=== PATIENT | male | born 1970 | race Caucasian/White ===

== ENCOUNTER 2017-07-15 14:24 | Day surgery (SDC) | payer OTHER ==
[2017-07-15] MEDS ORDERED: GABAPENTIN 300 MG CAP PO ONE (14:28)
[2017-07-15] MEDS ORDERED: ceFAZolin 2 GM/SWFI 2 GM/20 ML SYR IVP ONE (14:28)
[2017-07-15] MEDS ORDERED: ACETAMINOPHEN 500 MG TAB PO ONE (14:28)
[2017-07-15] MEDS ORDERED: CHLORHEXIDINE GLUC HIBICLENS 118 ML BTL TP ONE (14:29)
[2017-07-15] MEDS ORDERED: THROMBIN (BOVINE) 5,000 UNIT VIAL TP ONE (14:29)
[2017-07-15] MEDS ORDERED: BUPIVACAINE 0.25% 30 ML SDV ONE (14:29)
[2017-07-15] MEDS ORDERED: BACITRACIN 50,000 UNITS/10 ML SYR IRR ONE (14:30)
[2017-07-15] MEDS ORDERED: LIDOCAINE 1% 2 ML INJ ID PRN (14:31)
[2017-07-15] MEDS ORDERED: LR 1,000 ML IV ONE (14:31)
--- NOTE | 2017-07-15 14:40 | PDHPUP ---
History & Physical Update H&P update statement: This history and physical update is based on an assessment of the patient which was completed after admission or registration (within 24 hours), but prior to the surgery/procedure. H&P update: H&P reviewed & patient examined, no change in patient's condition since H&P completed
[2017-07-15] MEDS ORDERED: GABAPENTIN 300 MG CAP ONE (15:06)
[2017-07-15] MEDS ORDERED: MIDAZOLAM 2 MG/2 ML VIAL IVP ONE (15:13)
--- NOTE | 2017-07-15 15:13 | PDANEPAE ---
ANE History of Present Illness synovial cyst L4-L5, R foot drop ANE Past Medical History - Cardiovascular History Hx Hypertension: No Hx Arrhythmias: No Hx Chest Pain: No Hx Coronary Artery / Peripheral Vascular Disease: No Hx CHF / Valvular Disease: No Hx Palpitations: No - Pulmonary History Hx COPD: No Hx Asthma/Reactive Airway Disease: No Hx Recent Upper Respiratory Infection: No Hx Oxygen in Use at Home: No Hx Sleep Apnea: No Sleep Apnea Screening Result - Last Documented: Negative - Neurologic History Hx Cerebrovascular Accident: No Hx Seizures: No Hx Dementia: No - Endocrine History Hx Diabetes: No - Renal History Hx Renal Disorders: No - Liver History Hx Hepatic Disorders: No - Neurological & Psychiatric Hx Hx Neurological and Psychiatric Disorders: No - Cancer History Hx Cancer: No - Congenital Disorder History Hx Congenital Disorders: No - GI History Hx Gastrointestinal Disorders: No - Chronic Pain History Chronic Pain: No - Surgical History Prior Surgeries: R ACL. bilateral bone spurs on feet ANE Review of Systems Review of Systems: - Exercise capacity METS (RN): 6 METS ANE Patient History - Allergies Allergies/Adverse Reactions: No Known Allergies Allergy (Unverified 07/15/17 10:13) - Home Medications Home medications: home medication list seen and reviewed Home Medications: Advil PRN 07/15/17 [Last Taken 1 Week Ago ~07/08/17] Gabapentin [Neurontin 300 MG (*)] 900 BID 07/15/17 [Last Taken 07/14/17] Genvoya Tablet DAILY 07/15/17 [Last Taken 07/14/17 21:00] Herbals/Supplements -Info Only 07/15/17 [Last Taken 1 Week Ago ~07/08/17] Meloxicam PRN 07/15/17 [Last Taken 1 Week Ago ~07/08/17] - NPO status NPO Status: no food or drink >8 hours NPO Since - Liquids (Date): 07/15/17 NPO Since - Liquids (Time): 05:00 NPO Since - Solids (Date): 07/14/17 NPO Since - Solids (Time): 22:00 - Smoking Hx Smoking Status: Never smoked - Family Anes Hx Family Hx Anesthesia Complications: none ANE Labs/Vital Signs - Vital Signs Blood Pressure: 135/87 Heart Rate: 65 Respiratory Rate: 18 O2 Sat (%): 92 Height: 182.88 cm Weight: 88.451 kg ANE Physical Exam - Airway Neck exam: FROM Mallampati Score: Class 1 Mouth exam: normal dental/mouth exam - Pulmonary Pulmonary: no respiratory distress - Cardiovascular Cardiovascular: regular rate and rhythym - ASA Status ASA Status: II
[2017-07-15] MEDS ORDERED: MIDAZOLAM 2 MG/2 ML VIAL ONE (15:15)
[2017-07-15] MEDS ORDERED: PROPOFOL/EMULSION 500 MG/50 ML BOTTLE IV ONE (15:19)
[2017-07-15] MEDS ORDERED: REMIFENTANIL HCL 1 MG VIAL ONE (15:19)
[2017-07-15] MEDS ORDERED: fentaNYL 100 MCG/2 ML INJ ONE (15:19)
[2017-07-15] MEDS ORDERED: LIDOCAINE 2% 5 ML SDV ONE (15:49)
[2017-07-15] MEDS ORDERED: ROCURONIUM 50 MG/5 ML VIAL ONE (15:49)
[2017-07-15] MEDS ORDERED: ONDANSETRON 4 MG/2 ML VIAL ONE (15:52)
[2017-07-15] MEDS ORDERED: SUGAMMADEX SODIUM 200 MG/2 ML VIAL IVP ONE (15:52)
[2017-07-15] MEDS ORDERED: DEXAMETHASONE 4 MG/ML VIAL ONE (15:52)
[2017-07-15] MEDS ORDERED: HYDROmorphONE/DILAUDID 2 MG/ML INJ ONE (16:08)
[2017-07-15] MEDS ORDERED: ONDANSETRON 4 MG/2 ML VIAL IVP PRN (16:33)
[2017-07-15] MEDS ORDERED: PROMETHAZINE HCL 25 MG/ML INJ IVP PRN (16:33)
[2017-07-15] MEDS ORDERED: NALOXONE HCL 0.4 MG/ML INJ IVP PRN (16:33)
[2017-07-15] MEDS ORDERED: HYDROmorphONE/DILAUDID 1 MG/ML INJ IVP PRN (16:33)
[2017-07-15] MEDS ORDERED: fentaNYL 100 MCG/2 ML INJ IVP PRN (16:33)
[2017-07-15] MEDS ORDERED: PROPOFOL 200 MG/20 ML VIAL ONE (16:46)
[2017-07-15] MEDS ORDERED: DEPO METHYLPREDNISOLONE 40 MG/ML SDV ONE (16:48)
--- NOTE | 2017-07-15 17:21 | POSTANESTH ---
Post Anesthetic Evaluation Cardiovascular Status: Normal, Stable Respiratory Status: Normal, Stable Level of Consciousness/Mental Status: Can Participate in Eval Pain Control: Adequate, Prn Tx Ordered Nausea/Vomiting Control: Adequate, Prn Tx Ordered Complications Possibly Related to Anesthesia: None Noted
--- NOTE | 2017-07-15 17:24 | SOAPPROG ---
SOAP Progress Note Assessment/Plan: Post Op Visit: S: Awake and alert. NAD. Pt with some expected lower back pain O: AFVSS/PERRLA/EOMI no droop CN 2-12 grossly intact +lt touch 5/5 BUE/BLE = CDI A/P: 47 yo male that is s/p L4/5 right sided synovial cyst removal with decompression -orders in place -call with any questions or concerns -pt seen by Dr Hart -ana when criteria is met 07/15/17 17:22 Objective: Vital Signs Temp Pulse Resp BP Pulse Ox 36.9 C 65 18 135/87 H 92 07/15/17 14:48 07/15/17 16:32 07/15/17 16:32 07/15/17 16:32 07/15/17 16:32 ICD10 Worksheet Patient Problems: Problems Problem Status Onset Lumbar radicular pain Acute Lumbar stenosis Acute - ICD10 Problem Qualifiers (1) Lumbar stenosis (2) Lumbar radicular pain
[2017-07-15 17:29] VITALS: TEMP 98.2
[2017-07-15] MEDS ORDERED: oxyCODONE IR 5 MG TAB PO PRN (17:51)
[2017-07-15] MEDS ORDERED: METHOCARBAMOL 750 MG TAB PO PRN (17:52)
[2017-07-15] MEDS ORDERED: oxyCODONE IR 5 MG TAB ONE (18:06)
[2017-07-15 18:26] VITALS: BP 106/55; PULSE 66; RESP 14; O2SAT 96
--- NOTE | 2017-07-15 20:04 | GOP ---
[f rep st] OPERATIVE REPORT DATE OF OPERATION: 07/15/2017 SURGEON: Armando Hart MD NEUROSURGEON: Armando Hart MD. IUSS MASTER ANALYST: Rodney Martin PA-C. PREOPERATIVE DIAGNOSIS: Right L4-5 synovial cyst, mild L4-5 spondylolisthesis. POSTOPERATIVE DIAGNOSIS: Right L4-5 synovial cyst, mild L4-5 spondylolisthesis. PROCEDURE PERFORMED: Right L4-5 hemilaminotomy with a resection of an epidural mass over the right L 5 nerve root (synovial cysts), microscope. FINDINGS: ESTIMATED BLOOD LOSS: 10 cc. INDICATIONS: The patient is a 47-year-old who presented to my office yesterday with really a profoun d right footdrop. He was barely antigravity with the toe, in fact could not sustain the toe against gravity and had 3/5 strength and somewhat even classified as 2/5 strength in the right extensor hallu cis longus. He had a completely normal toe extensor on the left-hand side. He is in terrible pain a nd he had been managed with some interventional treatments. The footdrop was a couple weeks old at [facility]. It was not necessarily worsening, but his pain was not improving. He was slated to get aspira tion of the cyst by an outside physician, which is a perfectly reasonable plan. However, when I saw him, there was a significant footdrop and a large right synovial cyst. Imaging characteristics of th e cyst in my view were not favorable in this case for aspiration and I thought surgery should be purs ued on an urgent basis given the loss of function in the right foot. He also had profound sensory lo ss in that foot and he did want to proceed with surgery. The risk of recurrent cyst formation, CSF l eak, nerve injury, continued symptoms, and possible need for a fusion surgery was discussed. He knew that the cyst was simply a phenomenon indicative of an underlying problem in the facet joint and the n that problem in the facet joint itself would not improve with surgery, but the motivation of jillianr ellen was simply to remove this large cyst crushing the right 5 root. He wanted to proceed. DESCRIPTION OF PROCEDURE: Patient was taken to the operating room, placed in supine position. Gener al anesthesia was begun. He was flipped prone onto the Zach frame. Care was taken to pad all poin ts of contact. His back was sterilely prepped and draped in usual fashion. A localizing x-ray was nena harrison. We made a midline incision, it was about 15 mm in length. The subcutaneous tissue was dissect ed using Bovie cautery down to the fascia and a subperiosteal dissection was made down the L4-5 ludmila a on the right-hand side. A self-retaining retractor was placed. We drilled a right L4-5 hemilamino juliana after taking a localizing x-ray. There was an arthritic facet joint and a rather large synovial space in that joint. We opened ligamentum flavum and we actually ended up opening the cyst early on , and there was a very thick chalky material present in the cyst and it was difficult actually to res ect even after entering the cyst. We were able to remove all this material and decompress the latera l recess nicely. I then opened the more medial ligamentum flavum now that the cyst and its contents had been removed, and I could appreciate the dura more medially. This allowed me to get outside the cyst wall and I was able to dissect the cyst wall away from the thecal sac and the underlying L5 root . We decompressed all the way adjacent to and down to the mid pedicle of L5 in just above the L4-5 d isk. We had a complete resection of the cyst itself. The L5 nerve was easily visualized. It was a large epidural vein just lateral to the root and this was cauterized. We also cauterized with the bi polar the visible portion of the remaining synovial tissue at the joint line. Irrigated with antibio tic saline, placed Depo-Medrol over the right L5 root and then closed the incision in multiple layers using Vicryl sutures. Steri-Strips were applied to the skin. The patient was reversed from anesthe elisha, extubated, and transferred to recovery room in stable condition. There were no complications. COMPLICATIONS: None. /[id number]/MODL
== END 2017-07-15 18:57 | disposition home or self-care (01) ==
LOC: FSGY 14:24
PROVIDERS: ATTEND Neurological Surgery
DX: M71.38 Other bursal cyst, other site (principal); M43.16 Spondylolisthesis, lumbar region; M21.371 Foot drop, right foot; M54.16 Radiculopathy, lumbar region
CPT/HCPCS: J0171; J0690; J1030; J1100; J1170; J2250; J2405; J2704; J3010